=== PATIENT | female | born 1940 | race Caucasian/White ===

== ENCOUNTER 2016-04-24 03:37 | Emergency (ER) | payer OTHER, MEDICARE ==
[~2016-04-24] VITALS: Ht 157.5 cm; Wt 93.9 kg
[~2016-04-24 03:37] MED LIST: ALPRAZOLAM0.25 MG PO; CENTRUM SILVER1 TA1 PO; COUMADIN 5 MG TA5 MG PO; CRESTOR 5MG5 MG PO; FOLIC ACID 1 MG PO; HYDRODIURIL 2525 MG PO; KLOR-CON 10MEQ10 MEQ PO; NATURAL IRON65 MG PO; NORVASC 5MG TAB5 MG PO; OMEPRAZOLE40 MG PO; PAROXETINE HYDR40 MG PO; STOOL SOFTENER100 MG PO; VITAMIN C1000 M1 PO
--- NOTE | 2016-04-24 04:11 | ED MVC/FALL/TRAUMA COMPLAINT ---
History of Present Illness General Chief Complaint: Fall Stated Complaint: S/P FALL FROM BED HIT HED NO LOC C/O OLIVA ON COUMADI Source: patient Exam Limitations: no limitations Vital Signs & Intake/Output Vital Signs & Intake/Output Vital Signs Date Time Temp Pulse Resp B/P Pulse O2 O2 Flow FiO2 Ox Delivery Rate 04/24 0411 98.3 67 18 111/76 95 Room Air Allergies Coded Allergies: morphine (UNKNOWN 06/11/15) Reconcile Medications Alprazolam 0.25 MG TABLET 1 TAB PO BID PRN ANXIETY (Reported) Amlodipine (Norvasc 5MG Tab) 5 MG TABLET 1 TAB PO DAILY BP (Reported) Hydrochlorothiazide (Hydrodiuril 25 MG Tab) 25 MG TABLET 1 TAB PO DAILY DIURETIC (Reported) Omeprazole 40 MG CAPSULE.DR 1 CAP PO DAILY AC ACID REFLUX (Reported) PAROXETINE HCL (Paroxetine Hydrochloride) 40 MG TABLET 1 TAB PO DAILY MENTAL HEALTH (Reported) POTASSIUM CHLORIDE (KLOR-CON 10mEq TAB) 10 MEQ TABLET.ER 1 TAB PO DAILY SUPPLEMENT (Reported) Rosuvastatin Calcium (Crestor) 5 MG TABLET 1 TAB PO DAILY CHOLESTEROL ( Reported) Warfarin Sodium (Coumadin) 5 MG TABLET 1 TAB PO DAILY BLOOD THINNER (Reported ) Triage Nurses Notes Reviewed? yes Onset: Abrupt Duration: minute(s): Timing: single episode today Severity: mild Injuries/Fall Location: head Method of Injury: fall Loss of Consciousness: no loss of consciousness Modifying Factors: Improves With: rest. Associated Symptoms: headache HPI: 75-year-old woman on Coumadin presents after a fall. She states that she fell out of bed. "I rolled out of bed in my head hit the nightstand." She did not lose consciousness. She notes diffuse pain on the right side of her head. She has no neck pain. She has no other injury. She is otherwise well. Past History Medical History Any Pertinent Medical History? 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 No Review of Systems Review of Systems Constitutional: Reports: no symptoms. Eyes: Reports: no symptoms. Ears, Nose, Throat, Mouth: Reports: no symptoms. Respiratory: Reports: no symptoms. Cardiovascular: Reports: no symptoms. Gastrointestinal/Abdominal: Reports: no symptoms. Genitourinary: Reports: no symptoms. Musculoskeletal: Reports: no symptoms. Skin: Reports: no symptoms. Neurological/Psychological: Reports: no symptoms. All Other Systems: Reviewed and Negative Physical Exam Physical Exam General Appearance: well developed/nourished, mild distress Head: mild tenderness and diffuse swelling around the right sabianist. No other abnormality. Eyes: Bilateral: normal appearance, PERRL, EOMI. Ears, Nose, Throat, Mouth: hearing grossly normal Neck: normal inspection, supple, full range of motion, normal alignment Respiratory: normal breath sounds, chest non-tender, no respiratory distress, quiet respiration, lungs clear Cardiovascular: regular rate/rhythm Gastrointestinal: normal bowel sounds, soft, non-tender, no organomegaly Back: normal inspection, normal range of motion Extremities: normal range of motion, pelvis stable Neurologic/Psych: no motor/sensory deficits, awake, alert, oriented x 3 Skin: intact, normal color, warm/dry Core Measures ACS in differential dx? No Severe Sepsis Present: No Septic Shock Present: No Progress Differential Diagnosis: ICH, versus contusion versus other Plan of Care: Orders Procedure Date/time Status PROTHROMBIN TIME 04/24 406 Complete Laboratory Tests 04/24/16 0435: PT 11.1, INR 1.06 Diagnostic Imaging: Viewed by Me: CT Scan. Discussed w/RAD: CT Scan. Radiology Impression: head ct... no acute disease. Departure Departure Disposition: HOME OR SELF CARE Condition: Stable Clinical Impression Primary Impression: Head injury Referrals: KATRIN WEBB,FATIMAH NUÑEZ (PCP/Family) Departure Forms: Customer Survey General Discharge Information Comments Pt feels well at discharge... ambulating well... inr 1.01... discussed at length... she wishes to go home and will follow up with her doctors regarding her coumadin dosing.
[2016-04-24 04:48] LABS: PT 11.1 SEC (9.4-12.5)
--- NOTE | 2016-04-24 04:48 | CT SCAN REPORT ---
EXAMINATION: CT HEAD WITHOUT CONTRAST CLINICAL INFORMATION: Fall/head injury. COMPARISON: Head CT 03/14/2012. TECHNIQUE: Contiguous axial imaging was performed from the skull base to vertex without intravenous administration of contrast. FINDINGS: There is no intracranial hemorrhage, hydrocephalus, extra-axial surface collection, midline shift, or other herniation pattern. Regan to white matter differentiation is diffusely maintained without evidence of an evolved acute territorial infarct. Moderate chronic microangiopathy. The basilar cisterns are preserved. No significant soft tissue abnormality. No acute osseous abnormality. The paranasal sinuses and the mastoid air cells are well-aerated. IMPRESSION: - No acute intracranial abnormality. - Moderate chronic microangiopathy.
[2016-04-24 05:29] VITALS: BP 122/56
== END 2016-04-24 05:31 ==
LOC: ERH 03:37
PROVIDERS: Pediatrics
DX: S09.90XA Unspecified injury of head, initial encounter (principal); Z79.01 Long term (current) use of anticoagulants; W06.XXXA Fall from bed, initial encounter

== ENCOUNTER 2016-07-31 16:40 | Emergency (ER) | payer OTHER, MEDICARE ==
[~2016-07-31] VITALS: Ht 152.4 cm; Wt 95.3 kg
[2016-07-31] MEDS ORDERED: CRESTOR5 M1 PO ×3 (19:23→19:26)
[2016-07-31] MEDS ORDERED: OMEPRAZOLE40 M1 PO (19:25)
[2016-07-31] MEDS ORDERED: ALPRAZOLAM0.25 M1 PO (19:25)
[2016-07-31] MEDS ORDERED: METOPROLOL TART25 M1 PO (19:25)
[2016-07-31] MEDS ORDERED: WARFARIN SODIUM5 M1 PO (19:27)
[2016-07-31] MEDS ORDERED: COUMADIN2.5 M1 PO (19:27)
[2016-07-31] MEDS ORDERED: HYDROCHLOROTHIA50 M1 PO (19:27)
[2016-07-31] MEDS ORDERED: PAROXETINE HCL40 M1 PO (19:28)
[2016-07-31] MEDS ORDERED: AMLODIPINE BESYL5 M1 PO (19:28)
[2016-07-31] MEDS ORDERED: MONTELUKAST SOD10 M1 PO (19:28)
[2016-07-31] MEDS ORDERED: POTASSIUM CHLO20 ME2 PO (19:28)
[2016-07-31] MEDS ORDERED: FOLIC ACID1 M1 PO (19:29)
[2016-07-31] MEDS ORDERED: MULTI-DAY VITA1 EACH PO (19:29)
[2016-07-31] MEDS ORDERED: VITAMIN C1000 M2 PO (19:30)
[2016-07-31] MEDS ORDERED: SLOW FE142 MG PO (19:30)
--- NOTE | 2016-07-31 19:41 | ED NECK/BACK PAIN COMPLAINT ---
History of Present Illness General Chief Complaint: Low Back Pain/Injury Stated Complaint: LOW BACK PAIN TO FOREHEAD Source: patient, old records Exam Limitations: no limitations Vital Signs & Intake/Output Vital Signs & Intake/Output Vital Signs Date Time Temp Pulse Resp B/P B/P Pulse O2 O2 Flow FiO2 Mean Ox Delivery Rate 08/01 2123 97.5 83 18 135/62 91 Room Air 07/31 1918 98.5 79 18 128/60 91 Room Air 07/31 1901 Room Air 07/31 1707 97.9 99 18 123/81 100 Room Air ED Intake and Output 08/01 0000 07/31 1200 Intake Total Output Total Balance Patient 210 lb Weight Weight Reported by Patient Measurement Method Allergies Coded Allergies: morphine (UNKNOWN 06/11/15) Reconcile Medications Alprazolam 0.25 MG TABLET 1 TAB PO PRN ANXIETY (Reported) Amlodipine Besylate 5 MG TABLET 1 TAB PO DAILY BP (Reported) Ascorbic Acid (Vitamin C) 1,000 MG TAB.CHEW 1 TAB PO DAILY SUPPLEMENT ( Reported) Ferrous Sulfate (Slow Fe) 142 MG (45 MG IRON) TABLET.ER 1 TAB PO DAILY SUPPLEMENT (Reported) Folic Acid 1 MG TABLET 1 TAB PO DAILY SUPPLEMENT (Reported) Hydrochlorothiazide 50 MG TABLET 1 TAB PO DAILY BP (Reported) Hydrocodone/Acetaminophen (Vicodin 5-300 MG Tablet) 5 MG-300 MG TABLET 1 TAB PO Q6 PRN pain Metoprolol Tartrate 25 MG TABLET 0.5 TAB PO BID HEART/BP (Reported) Montelukast Sodium 10 MG TABLET 1 TAB PO DAILY ALLERGIES (Reported) Multivitamin (Multi-Day Vitamins) 1 EACH TABLET 1 TAB PO DAILY SUPPLEMENT ( Reported) Omeprazole 40 MG CAPSULE.DR 1 CAP PO DAILY AC GI (Reported) Paroxetine HCl 40 MG TABLET 1 TAB PO DAILY MENTAL HEALTH (Reported) Potassium Chloride 20 MEQ TAB.ER.PRT 1 TAB PO DAILY SUPPLEMENT (Reported) Prednisone 20 MG TABLET 3 TAB PO DAILY POSSIBLE TEMPORAL ARTERITIS Rosuvastatin Calcium (Crestor) 5 MG TABLET 1 TAB PO DAILY CHOLESTEROL ( Reported) Warfarin Sodium 5 MG TABLET 1 TAB PO EOD BLOOD THINNER (Reported) Warfarin Sodium (Coumadin) 2.5 MG TABLET 1 TAB PO EOD BLOOD THINNER (Reported ) Triage Note: PT TO ED FOR EXACERBATION OF CHRONIC SCIATICA PAIN. Triage Nurses Notes Reviewed? yes HPI: Patient is a 75-year-old female presents complaining of right-sided headache and right low back pain. Symptoms 1 month. Patient reports pain is severe, back pain worsens with movement. No exacerbating or alleviating factors to right temporal and parietal headache. Patient has been taking Tylenol with no relief. Patient took a Vicodin one time and reports that she had significant relief afterwards. Patient reports heaviness in bilateral legs. Patient has a remote history of sciatica reports it was several years ago and and is unsure if this feels similar. Patient denies recent trauma, fevers, chills, dysuria, hematuria , blurred vision, numbness. (ANNA NIEVES) Past History Travel History Traveled to [place] past 21 day No Medical History Any Pertinent Medical History? 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 No (ANNA NIEVES) Review of Systems Review of Systems Constitutional: Denies: chills, fever. Eyes: Reports: no symptoms. Denies: blurred vision, pain, photophobia. Ears, Nose, Throat, Mouth: Reports: no symptoms. Respiratory: Denies: cough, short of breath. Cardiovascular: Denies: chest pain. Gastrointestinal/Abdominal: Denies: abdominal pain, vomiting. Musculoskeletal: Reports: see HPI, back pain. Skin: Denies: rash. Neurological/Psychological: Reports: headache. Denies: numbness, paresthesia. (ANNA NIEVES) Physical Exam Physical Exam General Appearance: well developed/nourished, no apparent distress, alert, awake Head: atraumatic, normal appearance Eyes: Bilateral: normal appearance. Ears, Nose, Throat, Mouth: hearing grossly normal, moist mucous membrane Neck: normal inspection, supple, full range of motion Respiratory: normal breath sounds, chest non-tender, no respiratory distress, lungs clear Cardiovascular: regular rate/rhythm Peripheral Pulses: 2+ dorsalis pedis (R), 2+ dorsalis pedis (L) Gastrointestinal: normal bowel sounds, soft, non-tender Back: RIGHT LUMBAR PARASPINAL TENDERNESS Extremities: non-tender, normal range of motion Straight Leg Raising: Right: Negative. Left: Negative. Neurologic/Psych: awake, alert, oriented x 3, normal mood/affect, blow pit helper II-XII nml as tested Skin: intact, normal color, warm/dry (GALLITO FREEMAN,ANNA) Progress Differential Diagnosis: AAA, aortic dissection, carotid dissection, cauda equina syn, herniated disc, myofascial strain, pyelo/UTI, sciatica, spinal cord inj, thoracic outlet syn, T/L spine injury, ureterolithiasis, malignancy, temporal arteritis, intracranial bleed, intracranial mass, tension headache, migraine headache Diagnostic Imaging: Viewed by Me: CT Scan. Discussed w/RAD: CT Scan. Radiology Impression: PATIENT: HORACE LANG PRESENT AGE: 75 PATIENT ACCOUNT NO: [id number] : 41 LOCATION: [facility] ORDERING PHYSICIAN: ANNA FREEMAN SERVICE DATE: 07/31/16 EXAM TYPE: CAT - CT HEAD WO IV CONTRAST EXAMINATION: CT HEAD WITHOUT CONTRAST CLINICAL INFORMATION: Severe headache, on Coumadin COMPARISON: 04/24/2016 CT scan TECHNIQUE: Contiguous axial imaging was performed from the skull base to vertex without intravenous administration of contrast. DLP: 20.92 mGy-cm FINDINGS: There is no evidence of acute intracranial hemorrhage or territorial infarction. No abnormal mass effect or midline shift is seen. Regan to white matter differentiation is well preserved. No extra-axial fluid collections are identified. There are confluent and scattered bilateral periventricular and deep white matter hypodensities, nonspecific finding and could represent chronic ischemic changes of small vessel disease. Atherosclerotic calcifications of the cavernous parts of bilateral internal carotid arteries seen. The ventricles are normal in size. The osseous structures and soft tissues are normal. The mastoid air cells are well aerated. Mucosal thickening of the sphenoid sinus without air -fluid level. IMPRESSION: No acute intracranial hemorrhage. Sphenoid sinusitis. Atherosclerosis. Chronic ischemic changes of the small vessel disease. DICTATED BY: KAREN BIRMINGHAM MD DATE/TIME DICTATED:07/31/162031 BILINGUAL HR GENERALIST: KRYSTIAN DATE/TIME TRANSCRIBED:07/31/162031 CONFIDENTIAL, DO NOT COPY WITHOUT APPROPRIATE AUTHORIZATION. <Electronically signed in Other Vendor System> SIGNED BY: KAREN BIRMINGHAM MD 07/31/162041, PATIENT: HORACE LANG PRESENT AGE: 75 PATIENT ACCOUNT NO: [id number] : 41 LOCATION: [facility] ORDERING PHYSICIAN: ANNA FREEMAN SERVICE DATE: 07/31/16 EXAM TYPE: CAT - CT ABD & PELVIS W/O IV CONTRAS EXAMINATION: CT ABDOMEN AND PELVIS WITHOUT CONTRAST CLINICAL INFORMATION: Right sided abdominal pain COMPARISON: 02/08/2010 CT scan abdomen pelvis TECHNIQUE: Multidetector volumetric imaging was performed from the superior aspect of the liver through the pubic symphysis. Sagittal and coronal reformatted images were obtained on the technologist's workstation. DLP: 578.72 mGy-cm FINDINGS: LUNG BASES: Limited images of the lower thorax demonstrate a large-sized hiatal hernia containing the stomach. Adjacent atelectatic changes of lungs noted. There is no CT evidence of gastric volvulus. GASTROINTESTINAL TRACT: The duodenum, and small bowel loops are unremarkable. Moderate diverticular disease of sigmoid colon and left colon noted. No evidence of acute diverticulitis. The appendix is visualized and within normal limits. LIVER, GALLBLADDER, AND BILIARY TREE: Noncontrast images of the liver demonstrate hypodense hepatic lesions, for example: - a 2.9 cm indistinct hypodense lesion at the dome of liver, axial image 8/89 from series 2. - a 4.0 cm hypodense lesion in the right lobe of liver , image 14/89 from series 2. - a 1.5 cm hypodense hepatic lesion in segment 5, image 31/89 from series 2. No intrahepatic biliary ductal dilatation. The gallbladder is unremarkable with no evidence of radiopaque gallstones, gallbladder wall thickening, or obvious pericholecystic inflammatory changes. PANCREAS: Unremarkable. SPLEEN: Unremarkable. ADRENAL GLANDS: Unremarkable. KIDNEYS AND URETERS: The right kidneys is normal in size, shape, and attenuation. No hydronephrosis, hydroureter, or calculi seen. No perinephric stranding. There is a 3.3 cm left renal cortical hypodense lesion with fluid density of 8 Hounsfield unit. It has increased in size from 2.7 cm in 2009. It could represent a renal cyst. No left renal stone. No left ureter stone. No hydronephrosis. BLADDER: The urinary bladder is empty. ABDOMINAL WALL: There is a 6 x 4.5 cm fat-containing umbilical hernia. LYMPH NODES: There is an 11 mm aortocaval lymph node, below the level of the left renal vein as seen on axial image / from series 2. No mesenteric adenopathy. No pelvic adenopathy. VASCULAR: Atherosclerotic calcifications of abdominal aorta and major branches without aneurysmal dilatation. PELVIC VISCERA: The uterus is absent. No adnexal masses seen. OSSEOUS STRUCTURES: There is compression deformity of the superior endplate of the T12 vertebral body with loss of about 40% of vertebral body height. No evidence of spinal canal compromise based on this exam. This is similar to 04/29/2016 CT scan of chest. IMPRESSION: 1. Three hepatic hypodense lesions, concerning for metastatic disease. 2. Large hiatal hernia. 3. Left renal hypodense lesion, likely a renal cyst. 4. Diverticular disease of colon without evidence of acute diverticulitis. 5. Compression deformity of T12 vertebral body, not significantly changed since 04/29/2016 CT scan. DICTATED BY: KAREN BIRMINGHAM MD DATE/TIME DICTATED:07/31/162104 BILINGUAL HR GENERALIST:KRYSTIAN DATE/TIME TRANSCRIBED:07/31/162104 CONFIDENTIAL, DO NOT COPY WITHOUT APPROPRIATE AUTHORIZATION. <Electronically signed in Other Vendor System> SIGNED BY: KAREN BIRMINGHAM MD 07/31/162124 (ANNA NIEVES) Plan of Care: Orders Procedure Date/time Status PROTHROMBIN TIME 08/01 1939 Complete WESTERGREN SED RATE 08/01 1939 Complete COMPREHENSIVE METABOLIC PANEL 08/01 1939 Complete CBC WITHOUT DIFFERENTIAL 08/01 1939 Complete Laboratory Tests 07/31/16 2012: Anion Gap 16, Estimated GFR > 60, BUN/Creatinine Ratio 23.8, Glucose 109 H, Calcium 9.2, Total Bilirubin 0.9, AST 71 H, ALT 47, Alkaline Phosphatase 124, Total Protein 6.8, Albumin 3.8, Globulin 3.0, Albumin/Globulin Ratio 1.3, PT 22.7 H, INR 2.18 H, CBC w Diff NO MAN DIFF REQ, RBC 4.74, MCV 88.5, MCH 29.3, RDW 14.9 H, MPV 6.8 L, Gran % 83.4 H, Lymphocytes % 9.1 L, Monocytes % 6.7, Eosinophils % 0.6, Basophils % 0.2, Absolute Granulocytes 7.7 H, Absolute Lymphocytes 0.8 L, Absolute Monocytes 0.6, Absolute Eosinophils 0.1, Absolute Basophils 0, PUBS MCHC 33.1, ESR Westergren 65 H 07/31/2016 9:53:08 PM: Results of labs and imaging discussed with patient. I stressed the importance of follow-up with her primary doctor, oncologist, and with Dr. Gamboa(for temporal artery biopsy). Appears stable for discharge with close outpatient follow up. Discussed with Dr. Oakes. (ANNA NIEVES) Departure Departure Time of Disposition: 2150 Disposition: HOME OR SELF CARE Condition: Stable Clinical Impression Primary Impression: Headache Secondary Impressions: Compression fracture, Elevated erythrocyte sedimentation rate, Liver lesion Referrals: KATRIN WEBB,FATIMAH NUÑEZ (PCP/Family) EDITH WEBB,GINA [place]. Additional Instructions: Follow up with Dr. Gamboa(surgeon) for possible temporal artery biopsy given the area of your headache and the elevated "ESR level". You are being started on Prednisone, this will require tapering once you have completed this prescription. Call Tuesday for appointment to be seen within 1-2 weeks. Also follow up with your oncologist for further evaluation of liver lesions seen on your CT scan. Call on Tuesday for appointment to be seen within 1 week. Return to the ER if numbness, weakness, incontinence, declining vision, or worsening of symptoms. Also clal your primary care doctor on Tuesday for follow up. Departure Forms: Customer Survey General Discharge Information Prescriptions: Current Visit Scripts Prednisone 3 TAB PO DAILY #42 TAB Hydrocodone/Acetaminophen (Vicodin 5-300 MG Tablet) 1 TAB PO Q6 PRN pain #10 TAB (ANNA NIEVES) PA/[employer] Co-Sign Statement Statement: ED Attending supervision documentation- [X] I saw and evaluated the patient. I have also reviewed all the pertinent lab results and diagnostic results. I agree with the findings and the plan of care as documented in the PA's/[employer]'s documentation. [X] I have reviewed the ED Record and agree with the PA's/[employer]'s documentation. [] Additions or exceptions (if any) to the PAs/[employer]'s note and plan are summarized below: [] (HARSHA WEBB,NATANAEL)
[2016-07-31 20:22] LABS: ABSOLUTE BASOPHIL COUNT 0 /CUMM (0.0-0.2); ABSOLUTE EOSINOPHIL COUNT 0.1 /CUMM (0.0-0.7); ABSOLUTE GRANULOCYTE CT 7.7 /CUMM (1.4-6.5); ABSOLUTE LYMPH COUNT 0.8 /CUMM (1.2-3.4); ABSOLUTE MONOCYTE COUNT 0.6 /CUMM (0.10-0.60); BASOPHIL % 0.2 % (0.0-2.0); EOSINOPHIL % 0.6 % (0-5); GRANULOCYTE % 83.4 % (42.2-75.2); HEMATOCRIT 41.9 % (37-47); MEAN CORPUSCULAR HGB 29.3 PG (27.0-31.0); MEAN CORPUSCULAR HGB CONC 33.1 G/DL (33.0-37.0); MEAN CORPUSCULAR VOLUME 88.5 FL (81.0-99.0); MEAN PLATELET VOLUME 6.8 FL (7.4-10.4); PLATELET COUNT 214 /CUMM (130-400); RBC DISTRIBUTION WIDTH 14.9 % (11.5-14.5); RED BLOOD CELL CT 4.74 /CUMM (4.20-5.40); WHITE BLOOD CELL COUNT 9.2 /CUMM (4.8-10.8)
[2016-07-31 20:26] LABS: PT 22.7 SEC (9.4-12.5)
--- NOTE | 2016-07-31 20:42 | CT SCAN REPORT ---
EXAMINATION: CT HEAD WITHOUT CONTRAST CLINICAL INFORMATION: Severe headache, on Coumadin COMPARISON: 04/24/2016 CT scan TECHNIQUE: Contiguous axial imaging was performed from the skull base to vertex without intravenous administration of contrast. DLP: 20.92 mGy-cm FINDINGS: There is no evidence of acute intracranial hemorrhage or territorial infarction. No abnormal mass effect or midline shift is seen. Regan to white matter differentiation is well preserved. No extra-axial fluid collections are identified. There are confluent and scattered bilateral periventricular and deep white matter hypodensities, nonspecific finding and could represent chronic ischemic changes of small vessel disease. Atherosclerotic calcifications of the cavernous parts of bilateral internal carotid arteries seen. The ventricles are normal in size. The osseous structures and soft tissues are normal. The mastoid air cells are well aerated. Mucosal thickening of the sphenoid sinus without air-fluid level. IMPRESSION: No acute intracranial hemorrhage. Sphenoid sinusitis. Atherosclerosis. Chronic ischemic changes of the small vessel disease.
[2016-07-31 21:24] VITALS: BP 135/62
--- NOTE | 2016-07-31 21:25 | CT SCAN REPORT ---
EXAMINATION: CT ABDOMEN AND PELVIS WITHOUT CONTRAST CLINICAL INFORMATION: Right sided abdominal pain COMPARISON: 02/08/2010 CT scan abdomen pelvis TECHNIQUE: Multidetector volumetric imaging was performed from the superior aspect of the liver through the pubic symphysis. Sagittal and coronal reformatted images were obtained on the technologist's workstation. DLP: 578.72 mGy-cm FINDINGS: LUNG BASES: Limited images of the lower thorax demonstrate a large-sized hiatal hernia containing the stomach. Adjacent atelectatic changes of lungs noted. There is no CT evidence of gastric volvulus. GASTROINTESTINAL TRACT: The duodenum, and small bowel loops are unremarkable. Moderate diverticular disease of sigmoid colon and left colon noted. No evidence of acute diverticulitis. The appendix is visualized and within normal limits. LIVER, GALLBLADDER, AND BILIARY TREE: Noncontrast images of the liver demonstrate hypodense hepatic lesions, for example: - a 2.9 cm indistinct hypodense lesion at the dome of liver, axial image 8/89 from series 2. - a 4.0 cm hypodense lesion in the right lobe of liver, image 14/89 from series 2. - a 1.5 cm hypodense hepatic lesion in segment 5, image 31/89 from series 2. No intrahepatic biliary ductal dilatation. The gallbladder is unremarkable with no evidence of radiopaque gallstones, gallbladder wall thickening, or obvious pericholecystic inflammatory changes. PANCREAS: Unremarkable. SPLEEN: Unremarkable. ADRENAL GLANDS: Unremarkable. KIDNEYS AND URETERS: The right kidneys is normal in size, shape, and attenuation. No hydronephrosis, hydroureter, or calculi seen. No perinephric stranding. There is a 3.3 cm left renal cortical hypodense lesion with fluid density of 8 Hounsfield unit. It has increased in size from 2.7 cm in 2010. It could represent a renal cyst. No left renal stone. No left ureter stone. No hydronephrosis. BLADDER: The urinary bladder is empty. ABDOMINAL WALL: There is a 6 x 4.5 cm fat-containing umbilical hernia. LYMPH NODES: There is an 11 mm aortocaval lymph node, below the level of the left renal vein as seen on axial image 31/89 from series 2. No mesenteric adenopathy. No pelvic adenopathy. VASCULAR: Atherosclerotic calcifications of abdominal aorta and major branches without aneurysmal dilatation. PELVIC VISCERA: The uterus is absent. No adnexal masses seen. OSSEOUS STRUCTURES: There is compression deformity of the superior endplate of the T12 vertebral body with loss of about 40% of vertebral body height. No evidence of spinal canal compromise based on this exam. This is similar to 04/29/2016 CT scan of chest. IMPRESSION: 1. Three hepatic hypodense lesions, concerning for metastatic disease. 2. Large hiatal hernia. 3. Left renal hypodense lesion, likely a renal cyst. 4. Diverticular disease of colon without evidence of acute diverticulitis. 5. Compression deformity of T12 vertebral body, not significantly changed since 04/29/2016 CT scan.
[2016-07-31] MEDS ORDERED: VICODIN 5-3001 EACH PO (21:49)
[2016-07-31] MEDS ORDERED: PREDNISONE20 M1 PO (21:49)
== END 2016-07-31 22:10 ==
LOC: ERH 16:40
PROVIDERS: Physician Assistant
DX: R51 Headache (principal); M48.54XA Collapsed vertebra, not elsewhere classified, thoracic region, initial encounter for fracture; R70.0 Elevated erythrocyte sedimentation rate; I10 Essential (primary) hypertension; E78.5 Hyperlipidemia, unspecified; Z79.01 Long term (current) use of anticoagulants; Z86.718 Personal history of other venous thrombosis and embolism
CPT/HCPCS: 74176